=== PATIENT | male | born 1970 | race American Indian/Alaskan Native ===

== ENCOUNTER 2017-01-06 09:59 | Emergency (ER) | payer SELFPAY ==
[2017-01-06 10:49] LABS: Basophils % (Auto) 0.9 % (0.0-1.8); Eosinophils % (Auto) 2.5 % (0.0-4.3); Hematocrit 42.9 % (35.5-45.6); Hemoglobin 14.2 gm/dl (11.8-15.2); Mean Corpuscular HGB Conc 33 % (32-34); Mean Corpuscular Hemoglobin 27 pg (28-32); Mean Corpuscular Volume 83 fl (84-94); Platelet Count 190 K/mm3 (140-440); Red Cell Distribution Width 15.5 % (13.2-15.2); White Blood Count 5.9 K/mm3 (4.5-11.0)
[2017-01-06 11:13] LABS: Anion Gap 18 mmol/L; BUN/Creatinine Ratio 11.66; Blood Urea Nitrogen 14 mg/dL (9-20); Calcium 8.5 mg/dL (8.4-10.2); Carbon Dioxide 22 mmol/L (22-30); Chloride 103.4 mmol/L (98-107); Glucose 97 mg/dL (75-100); Potassium 3.7 mmol/L (3.6-5.0); Sodium 140 mmol/L (137-145)
[2017-01-06] MEDS ORDERED: NITROSTAT SL ONE (12:39)
[2017-01-06] MEDS ORDERED: LASIX PO ONE (12:39)
--- NOTE | 2017-01-06 12:44 | Emergency Department Report ---
ED Chest Pain HPI - General Chief Complaint: Chest Pain Stated Complaint: CHF/BEKAH/CHEST PAIN Time Seen by Provider: 01/06/17 12:34 Source: patient Mode of arrival: Ambulatory Limitations: No Limitations - History of Present Illness Initial Comments: This is a 46 years old male coming with shortness of breath chest pain for 2 weeks on and off he has history of congestive heart failure he is off his Lasix for 1-1/2 months. He stated that he has mild shortness of breath when he walk and some generalized weakness. MD Complaint: chest pain -: Gradual, week(s) Onset: during rest, during exertion Pain Location: left chest Severity scale (0 -10): 5 Quality: tightness Consistency: intermittent Improves With: rest Worsens With: exertion - Related Data Home Medications Medication Instructions Recorded Confirmed Last Taken Valsartan [Diovan] 320 mg PO QDAY 05/30/15 05/30/15 05/29/15 Previous Rx's Medication Instructions Recorded Last Taken Type AtorvaSTATin [Lipitor] 10 mg PO QHS #30 tablet 06/01/15 Unknown Rx Carvedilol [Coreg] 12.5 mg PO BID #60 tablet 06/01/15 Unknown Rx Furosemide [Lasix TAB] 40 mg PO QDAY #30 tablet 06/01/15 Unknown Rx Spironolactone [Aldactone] 50 mg PO QDAY #30 tablet 06/01/15 Unknown Rx Valsartan [Diovan] 80 mg PO DAILY #30 tab 06/01/15 Unknown Rx Furosemide [Lasix TAB] 40 mg PO QDAY #30 tablet 01/06/17 Unknown Rx Valsartan/Hydrochlorothiazide 1 tab PO QDAY #30 tablet 01/06/17 Unknown Rx [Diovan Hct 160-12.5 mg] amLODIPine [Norvasc] 5 mg PO DAILY #30 tab 01/06/17 Unknown Rx Allergies Allergy/AdvReac Type Severity Reaction Status Date / Time Sulfa (Sulfonamide AdvReac Unknown Verified 04/25/15 11:15 Antibiotics) Heart Score - HEART Score History: Moderately suspicious EKG: Non-specific Age: < 45 Risk factors: 1-2 risk factors Troponin: < normal limit HEART Score: 3 - Critical Actions Critical Actions: 0-3 pts:0.9-1.7%risk of adverse cardiac event.Candidate for discharge ED Review of Systems ROS: Stated complaint: CHF/BEKAH/CHEST PAIN Other details as noted in HPI Comment: All other systems reviewed and negative Constitutional: denies: chills, fever Respiratory: denies: cough, shortness of breath Cardiovascular: chest pain, dyspnea on exertion, orthopnea. denies: palpitations, edema, syncope Gastrointestinal: denies: abdominal pain, nausea, vomiting, diarrhea Neurological: denies: headache, weakness, numbness ED Past Medical Hx - Past Medical History Previous Medical History?: Yes Hx Hypertension: Yes Hx Congestive Heart Failure: Yes - Surgical History Past Surgical History?: Yes Additional Surgical History: Heart cath, no stent placed - Social History Smoking Status: Former Smoker Substance Use Type: Marijuana, Prescribed - Medications Home Medications: Home Medications Medication Instructions Recorded Confirmed Last Taken Type Valsartan [Diovan] 320 mg PO QDAY 05/30/15 05/30/15 05/29/15 History AtorvaSTATin [Lipitor] 10 mg PO QHS #30 tablet 06/01/15 Unknown Rx Carvedilol [Coreg] 12.5 mg PO BID #60 tablet 06/01/15 Unknown Rx Furosemide [Lasix TAB] 40 mg PO QDAY #30 tablet 06/01/15 Unknown Rx Spironolactone [Aldactone] 50 mg PO QDAY #30 tablet 06/01/15 Unknown Rx Valsartan [Diovan] 80 mg PO DAILY #30 tab 06/01/15 Unknown Rx Furosemide [Lasix TAB] 40 mg PO QDAY #30 tablet 01/06/17 Unknown Rx Valsartan/Hydrochlorothiazide 1 tab PO QDAY #30 tablet 01/06/17 Unknown Rx [Diovan Hct 160-12.5 mg] amLODIPine [Norvasc] 5 mg PO DAILY #30 tab 01/06/17 Unknown Rx ED Physical Exam - General Limitations: No Limitations General appearance: alert, in no apparent distress - Eye Eye exam: Present: normal appearance - ENT ENT exam: Present: normal exam - Neck Neck exam: Present: normal inspection. Absent: tenderness, meningismus, full ROM, lymphadenopathy, thyromegaly - Respiratory Respiratory exam: Present: normal lung sounds bilaterally. Absent: respiratory distress, wheezes, rales, rhonchi, stridor, chest wall tenderness, accessory muscle use, decreased breath sounds, prolonged expiratory - Cardiovascular Cardiovascular Exam: Present: regular rate, normal rhythm, normal heart sounds - GI/Abdominal GI/Abdominal exam: Present: soft. Absent: distended, tenderness, guarding, rebound, normal bowel sounds - Back Exam Back exam: Absent: normal inspection, full ROM, tenderness, CVA tenderness (R), CVA tenderness (L), muscle spasm, paraspinal tenderness - Neurological Exam Neurological exam: Present: alert, oriented X3, CN II-XII intact - Skin Skin exam: Present: warm, normal color ED Course Vital Signs 01/06/17 01/06/17 01/06/17 10:25 11:38 11:45 Temperature 98.6 F Pulse Rate 66 73 Respiratory 22 28 H Rate Blood Pressure 151/114 151/101 O2 Sat by Pulse 98 100 97 Oximetry 01/06/17 01/06/17 01/06/17 11:59 12:00 12:15 Temperature Pulse Rate 87 70 Respiratory 28 H 21 20 Rate Blood Pressure 162/117 162/117 O2 Sat by Pulse 97 97 97 Oximetry 01/06/17 01/06/17 01/06/17 12:30 12:45 13:00 Temperature Pulse Rate 73 82 64 Respiratory 22 24 9 L Rate Blood Pressure 152/111 152/111 136/95 O2 Sat by Pulse 93 97 95 Oximetry 01/06/17 01/06/17 01/06/17 13:01 13:15 13:30 Temperature Pulse Rate 66 64 58 L Respiratory 15 19 Rate Blood Pressure 152/11 129/94 131/96 O2 Sat by Pulse 97 97 Oximetry 01/06/17 01/06/17 01/06/17 13:45 14:00 14:15 Temperature Pulse Rate 73 90 74 Respiratory 18 21 19 Rate Blood Pressure 131/96 145/103 145/103 O2 Sat by Pulse 98 97 97 Oximetry - Reevaluation(s) Reevaluation #1: 01/06/17 15:18 Patient is stated that he is feeling much better no chest pain no shortness of breath will refill his medication and to follow up with his primary care physician for further management. ED Medical Decision Making - Lab Data Result diagrams: 01/06/17 10:33 01/06/17 10:33 Critical care attestation.: If time is entered above; I have spent that time in minutes in the direct care of this critically ill patient, excluding procedure time. ED Disposition Clinical Impression: Chest pain, CHF (congestive heart failure) Disposition: DC-01 TO HOME OR SELFCARE Is pt being admited?: No Condition: Stable Instructions: Chest Pain (ED) Referrals: PRIMARY CARE, [Primary Care Provider] - 3-5 Days
--- NOTE | 2017-01-06 13:21 | XRay Report ---
AP CHEST: HISTORY: chest pain Mild cardiomegaly is unchanged since 05/30/15. The lungs are clear. No evidence for pneumonia, CHF or pneumothorax. The bony structures are intact. IMPRESSION: Mild cardiomegaly. Lungs clear.
--- NOTE | 2017-01-06 13:44 | Admit Criteria Form ---
Admission Criteria Documentation: HEART FAILURE: COMMON COMPLICATIONS Clinical Indications for Inpatient Care ([place]/check or initial the applicable condition/criteria): Ongoing inpatient care may be indicated for heart failure with 1 or more of the following (1)(2)(3)(4)(5)(6)(7)(8): [ ]I. New-onset heart failure [ ]II. Acute cardiac ischemia causing or associated with failure [ ]III. Ongoing need for care for primary condition requiring frequent therapy adjustments because of changes in cardiac function (eg, drug dosage changes for drugs that are renally metabolized) [ x]IV. Complications of heart failure, including 1 or more of the following: [ ]a) Hemodynamic instability [ ]b) Pericardial effusion [ ]c) Symptomatic pleural effusion(16) [ ]d) Hypoxemia [ ]e) Tachypnea [x ]f) Dyspnea [ ]g) Syncope [ ]h) Altered mental status [ ]i) Acute renal insufficiency that is severe (reduction of more than 50% in estimated glomerular filtration rate from baseline) or progressive (reduction of more than 25% in estimated glomerular filtration rate from baseline, with creatinine continuing to rise) [ ]j) Debilitating anasarca (eg tissue breakdown with infection, inability to void due to edema)(E) (17) [ ]k) Clinically significant metabolic abnormalities due to heart failure (e.g., new-onset metabolic acidosis) Extended stay may be needed until ALL of the following are present(1)(3)(18)(41) (55): [ ]a) Hemodynamic stability [ ]b) Stable and effective diuretic regimen established (or patient on stable dialysis regimen if in chronic renal failure) [ ]c) Volume status acceptable on oral medication [ ]d) Breathing comfortably at rest [ ]e) Saturation of arterial oxygen greater than 90% or at acceptable baseline [ ]f) Pulmonary edema absent or improved [ ]g) Peripheral or sacral edema absent or improved [ ]h) Renal function stable and manageable at a lower level of care [ ]i) Complications (e.g., pleural effusion) resolved or manageable at a lower level of care [ ]j) Patient or caregiver has received written discharge instructions or educational material addressing activity level, diet, discharge medications, follow-up appointment, weight monitoring, and what to do if symptoms worsen. (56)(57)(58) The original [employer] content created by Dick Velazquez has been revised. The portions of the content which have been revised are identified through the use of italic text or in bold, and Dick Velazquez has neither reviewed nor approved the modified material.All other unmodified content is copyright Dick Velazquez. Please see references footnoted in the original Dick Velazquez edition 2017
[2017-01-06 15:24] VITALS: BP 140/103
== END 2017-01-06 15:30 | disposition home or self-care (01) ==
LOC: ED 09:59
DX: I50.9 Heart failure, unspecified (principal); I10 Essential (primary) hypertension; F12.90 Cannabis use, unspecified, uncomplicated; Z88.2 Allergy status to sulfonamides; Z87.891 Personal history of nicotine dependence
CPT/HCPCS: 36415; 71010; 80048; 84484; 85025; 93005; 93010